=== PATIENT | male | born 1940 | race Caucasian/White ===

== ENCOUNTER → 2024-01-30 | Outpatient (CLI) | payer MEDICARE | LOC: M PLAIMG 10:55 | PROVIDERS: ATTEND Pain Medicine Interventional Pain Medicine | DX: M47.817 Spondylosis without myelopathy or radiculopathy, lumbosacral region (principal) ==

== ENCOUNTER 2025-09-18 10:21 | Day surgery (SDC) | payer MEDICARE ==
[~2025-09-18] VITALS: Ht 170.2 cm; Wt 111.9 kg
[~2025-09-18 10:21] MED LIST: ASPI-255 PO; CARV25TA PO; FINA5TAB2 PO; LIDOCAINE 3.5% 1 ML OPHTH TOPICAL GEL OU ONE; LISI10TA22 PO; MELO7.5T35 PO; METF500T13 PO; SIMV40TA20 PO; TAMS1CAP17 PO; VITA200016 PO
[2025-09-18] MEDS: CIPROFLOXACIN 0.3% OPHTH OINTMENT As Ordered ONE (13:20)
[2025-09-18] MEDS: LIDOCAINE 2% W/EPINEPHrine 20 ML VIAL **PRES FREE As Ordered ONE (13:20)
[2025-09-18] MEDS: POVIDONE-IODINE 5% OPHTH PREP SOL 30ML As Ordered ONE (13:21)
[2025-09-18 13:29] VITALS: BP 170/83; TEMP 97.2; O2SAT 97
== END 2025-09-18 14:30 | disposition home or self-care (01) ==
LOC: M SDC 10:21
PROVIDERS: ATTEND Ophthalmology
DX: H02.403 Unspecified ptosis of bilateral eyelids (principal); E11.9 Type 2 diabetes mellitus without complications; I10 Essential (primary) hypertension; E78.00 Pure hypercholesterolemia, unspecified; Z79.899 Other long term (current) drug therapy; Z79.82 Long term (current) use of aspirin; N40.0 Benign prostatic hyperplasia without lower urinary tract symptoms; Z79.1 Long term (current) use of non-steroidal anti-inflammatories (NSAID); Z79.84 Long term (current) use of oral hypoglycemic drugs; Z95.2 Presence of prosthetic heart valve
CPT/HCPCS: 67904; 88302; J3010